=== PATIENT | female | born 1945 | race Caucasian/White ===

== ENCOUNTER 2019-03-01 05:25 | Day surgery (SDC) ==
--- NOTE | 2019-02-23 13:25 | EKG Report ---
Test Performed on : 02/23/2019 1:15:12 PM Test Reason : pat Blood Pressure : / mmHG Vent. Rate : 055 BPM Atrial Rate : 055 BPM P-R Int : 148 ms QRS Dur : 090 ms QT Int : 400 ms P-R-T Axes : 046 028 043 degrees QTc Int : 382 ms Sinus bradycardia. Possible Left atrial enlargement Borderline ECG No previous ECGs available Confirmed by Ivan HARDY, Edd ([id number]) on 02/24/2019 10:37:57 AM
[2019-02-23 13:34] LABS: BASO# 0.02 X1000 (0.0-0.2); BASO% 0.4 % (0.0-0.8); EOS# 0.14 X1000 (0.0-0.7); EOS% 2.7 % (0.0-10.0); HEMATOCRIT 42.2 % (37.0-47.0); LYMPH# 1.54 X1000 (1.2-3.4); LYMPH% 29.7 % (20.5-51.1); MCH 28.4 PG (27-31); MCHC 30.8 g/dL (33-37); MCV 92.1 FL (81-99); MONO# 0.42 X1000 (0.11-0.59); MONO% 8.1 % (1.7-9.3); MPV 9.5 FL (7.4-10.4); NEUT# 3.07 X1000 (1.4-6.5); NEUT% 59.1 % (42.2-75.2); PLT 212 X1000 (130-400); RBC 4.58 XMIL (4.2-5.4); RDW 12.2 % (11.5-14.5); WBC 5.19 X1000 (4.8-10.8)
[2019-02-23 14:55] LABS: AGAP 10; BUN 21 mg/dL (8-22); CALCIUM 10.9 mg/dL (8.8-10.2); CHLORIDE 99 mmol/L (98-107); COSMO 284; CREATININE 0.9 mg/dL (0.5-0.9); ESTIMATED GFR > 60; GLUCOSE 95 mg/dL (70-104); POTASSIUM 3.7 mmol/L (3.5-5.1); SODIUM 141 mmol/L (136-145); TCO2 32 mmol/L (25-35)
--- NOTE | 2019-02-28 21:15 | HISTORY AND PHYSICAL ---
HISTORY: The patient is a 70-year-old female referred to me by Dr. Love Kirk. The patient is having increasing problems with symptomatic pelvic organ prolapse. She is not sexually active, but is having significant vaginal irritation, and she is able to feel the bladder outside of her body. She is wishing to proceed with surgical intervention after using pessaries for the last 2 years. PAST MEDICAL HISTORY: Positive for type 2 diabetes, glaucoma, rosacea, and hypertension. PAST SURGICAL HISTORY: Positive for basal cell removal on the face. She is noted to be a para 2- 0-0-2. ALLERGIES: None. CURRENT MEDICATIONS: 1. Omeprazole 20. 2. Hydrochlorothiazide 12.5. 3. Metformin 500. 4. Latanoprost 0.005%. 5. Timolol maleate 0.5%. 7. P.r.n. medications. SOCIAL HISTORY: Negative for tobacco, ETOH, or drugs. FAMILY HISTORY: Positive for breast cancer in a paternal aunt. PHYSICAL EXAMINATION: GENERAL: BMI is 33. HEENT: Normocephalic, atraumatic. PERRLA. EOMI. No thyromegaly. CV: Regular rate and rhythm without murmur, gallop, rub. PULMONARY: Clear to auscultation and percussion. ABDOMEN: Soft. : Shows POP-Q stage IV. Leading edge is +5 and is DA. Point C is -4 with a TDL of 11. NEUROLOGIC: Afocal. ASSESSMENT AND PLAN: Patient has been managed for several years now with pessaries and is wishing to proceed with surgical intervention. The risks and benefits of a LeFort colpocleisis with midurethral sling and perineorrhaphy were explained at length. She understands and is wishing to proceed to surgical intervention. cc: MD KAM Alba
[2019-03-01] MEDS ORDERED: KEFZOL 1 GM/D5W 2 GM/100 ML IVPB ONE (05:48)
[2019-03-01] MEDS ORDERED: LR 1,000 ML ONE ×2 (05:48→08:57)
[2019-03-01] MEDS ORDERED: METROGEL-VAGINAL 0.75% GEL ONE (06:22)
[2019-03-01] MEDS ORDERED: SODIUM CHLORIDE 0.9% ONE (06:22)
[2019-03-01] MEDS ORDERED: SENSORCAINE 0.5%-EPI 1:200,000 ONE (06:22)
[2019-03-01] MEDS ORDERED: D10W 500 ML ONE (06:23)
[2019-03-01] MEDS ORDERED: ROBINUL ONE (06:28)
[2019-03-01] MEDS ORDERED: DIPRIVAN 1% ONE (06:28)
[2019-03-01] MEDS ORDERED: XYLOCAINE-MPF 2% ONE (06:28)
[2019-03-01] MEDS ORDERED: DECADRON ONE ×2 (07:00→09:17)
[2019-03-01] MEDS ORDERED: ZOFRAN ONE ×2 (07:00→09:17)
[2019-03-01] MEDS ORDERED: TORADOL ONE ×2 (07:00→09:17)
[2019-03-01] MEDS ORDERED: LASIX ONE (07:58)
[2019-03-01] MEDS: PHENERGAN ONE ×2 (08:58→09:05)
[2019-03-01] MEDS ORDERED: ZOFRAN ODT PO PRN (09:52)
[2019-03-01] MEDS ORDERED: NORCO-5 PO PRN (09:52)
[2019-03-01] MEDS: NEURONTIN PO SCH ×2 (12:48→20:52)
[2019-03-01] MEDS: PERIDEX MT SCH ×2 (12:48→20:52)
[2019-03-01] MEDS: HYDROCHLOROTHIAZIDE PO SCH (12:48)
[2019-03-01] MEDS: COLACE PO SCH ×2 (12:48→20:52)
[2019-03-01] MEDS: TORADOL IV SCH ×2 (12:48→18:19)
[2019-03-01] MEDS: LR 1,000 ML IV SCH ×2 (12:49→18:20)
[2019-03-01] MEDS: GLUCOPHAGE PO SCH (12:52)
--- NOTE | 2019-03-01 13:20 | PROGRESS NOTE ---
DATE: 03/01/2019 SUBJECTIVE: The patient is alert and oriented x3. OBJECTIVE: Afebrile. Vital signs stable. Urine output is adequate. ASSESSMENT AND PLAN: Routine postoperative care. The patient will undergo voiding trial in the morning, and we will plan on discharge in the morning. cc: Tacos Bull MD
[2019-03-01] MEDS: PATIENT'S OWN MED OPH SCH (13:50)
--- NOTE | 2019-03-01 14:31 | OPERATIVE NOTE ---
PROCEDURE DATE: 03/01/2019 PREOPERATIVE DIAGNOSIS: POP-Q stage IV prolapse. POSTOPERATIVE DIAGNOSIS: POP-Q stage IV prolapse. PROCEDURE PERFORMED: LeFort colpocleisis, dilation and curettage, perineorrhaphy, midurethral sling with Obtryx. SURGEON: Tacos Bull M.D. ANESTHESIA: General. ESTIMATED BLOOD LOSS: 50 mL. HISTORY: The patient is a 73-year-old female who has been managed with pessary for a prolonged period of time, having continued issues with her advanced-stage prolapse, who desired surgical intervention. The risks and benefits have been discussed. OPERATIVE FINDINGS: Consistent with the preop diagnosis. She has total eversion of the vagina and uterus. OPERATIVE PROCEDURE: The patient was taken to the operating room and placed in the supine position. After adequate general anesthesia was obtained, she was placed in [facility] cane stirrups, and vagina and perineum were prepped and draped in the usual fashion. At this time, single-tooth tenaculum was utilized to stabilize the anterior lip of the cervix. Hegar dilators were utilized to dilate the cervix to 4 or 5-Armenian. A Telfa pad was placed in the posterior fourchette, and then sharp curettage was performed on the endometrial cavity throughout. The uterus was noted to be small. Scant tissue was obtained and sent to Pathology for frozen section, which returned later as a small polyp and no abnormalities in terms of malignancy. After this had been finished, we then began with demarcating our area of dissection for the anterior and posterior dissection, starting anteriorly. We performed a hydrodissection in this area with 0.25% Marcaine with epinephrine mixed 50% with normal saline. We dissected out the anterior portion by making initial incisions with scalpel along the vaginal mucosa to delineate the extent of our large rectangular dissection. Upon doing this, starting at the cervix, we went all the way up to the urethrovesical neck, and then laterally, leaving approximately a 2 cm strip of vaginal tissue for tunnel creation. We turned our attention towards the posterior compartment, and in a similar fashion did the hydrodissection with the same local anesthetic. We skeletonized our dissection extent by using a scalpel on the vaginal mucosa, again leaving approximately the 2 cm vaginal strip laterally. We then dissected out the large posterior rectangle incision, extending from close to the perineal body to the cervical stroma. We dissected this out using sharp dissection with traction and countertraction, removing all the vaginal mucosa. We then began imbricating by tying front to back initially with 0 Vicryl ligature through the cervical stroma. We then continued staying mostly within the midline portion of our dissection using 2.0 Vicryl ligature, closing anterior to posterior. After we had done approximately half of this, we then began closing the vaginal mucosa from one side to the other with interrupted 2.0 Vicryl ligatures. This allowed for continued regression of the prolapse, and yet still maintaining visualization of the vaginal tissue that was being retracted back in. We then continued with our midline closure, using interrupted sutures of 2.0 Vicryl ligature to the perineal body and the urethrovesical neck. We then went back to the 0 Vicryl ligature, and closed the vaginal mucosa, again with the running locking fashion, closing anterior to posterior, leaving us a small tunnel for blood drainage from the cervix if need be. After doing this, we then essentially had 90% closure of the large defect. We closed anterior to posterior, the vaginal mucosa, extending from the urethrovesical neck, down to just inside the hymenal ring. After doing this, we proceeded on with perineorrhaphy. We grasped the vaginal introitus, approximately 4 o'clock and 8 o'clock position, again did a hydrodissection with the same local anesthetic. We then made a vickie-shaped incision. Using a 0 Vicryl ligature with a [id number] fashion, we performed plication of the distal levators across this area, closing the perineal body through this area as well and building this area up, and we did this with several interrupted sutures. This left us with the remaining second-degree episiotomy, which we closed in the typical fashion with 2.0 Vicryl ligature. We then turned our attention towards placement of the sling. The urethra was grasped proximally and distally with Allis clamps, and injected another 8 to 10 mL of the same local anesthetic. A sagittal incision was made, and Metzenbaum scissors were utilized to dissect up towards the ischial pubic ramus on each side at approximately 10 o'clock and 2 o'clock position. We were able to get our finger in and feel the obturator membrane on both sides. Based on the bony landmark of the ischial pubic ramus as well as the insertion of the adductor longus, a stab incision was initially made on the left-hand side. Halo device was introduced through this incision, through the obturator canal, to the sound truck operator's finger, which directed the needle out. The mesh was attached to it. It was retracted back through the skin. This was performed on the contralateral side in a similar fashion. After completion of this, Ryan catheter was removed, cystoscope was placed. Urine output was noted to be clear, but concentrated. Then, 20 mg of Lasix was given. In doing this, we then had better visualization of the ureteral orifices, and both were effluxing urine. There was no evidence of any abnormalities, any sutures, any blood, or any mesh within the bladder. Cystoscope was removed. A Italia clamp was placed in the midurethral position. The tape was brought up with Italia clamp. Blue tag was excised and sheaths easily removed. There was no tension on the mesh whatsoever. The midurethral incision was closed with running locking 2.0 Vicryl ligature. The mesh was trimmed at the skin. Ryan catheter was placed. Sponge count, instrument count, and needle counts were correct x3. Packs and drains were Ryan. The patient was awakened and taken to the recovery room with vital signs stable. cc: Tacos Bull MD MTDD
[2019-03-01 15:10] LABS: URINE SOURCE CATH
[2019-03-01 15:20] LABS: BILIRUBIN URINE NEGATIVE (NEGATIVE); BLOOD URINE NEGATIVE (NEGATIVE); COLOR STRAW; GLUCOSE URINE NEGATIVE (NEGATIVE); KETONE URINE NEGATIVE (NEGATIVE); LEUKOCYTES URINE NEGATIVE (NEGATIVE); NITRITE URINE NEGATIVE (NEGATIVE); PH URINE 6.5; PROTEIN URINE NEGATIVE (NEGATIVE); SP GRAVITY URINE 1.006; TURBIDITY URINE CLEAR (CLEAR); UROBILINOGEN URINE NORMAL (NORMAL)
[2019-03-01 15:22] LABS: UR EPITHELIAL CELLS <10 /HPF (<10); URINE BACTERIA NEGATIVE /HPF; URINE RBC <10 /HPF (<10); URINE WBC <10 /HPF (<10)
[2019-03-01] MEDS ORDERED: ZOCOR PO SCH (21:00)
[2019-03-02] MEDS: TORADOL IV SCH ×2 (01:48→06:25)
[2019-03-02] MEDS: LR 1,000 ML IV SCH (02:29)
[2019-03-02] MEDS: NEURONTIN PO SCH (09:29)
[2019-03-02] MEDS: PERIDEX MT SCH (09:29)
[2019-03-02] MEDS: PATIENT'S OWN MED OPH SCH (09:29)
[2019-03-02] MEDS: COLACE PO SCH (09:29)
[2019-03-02] MEDS: HYDROCHLOROTHIAZIDE PO SCH (09:29)
[2019-03-02] MEDS: GLUCOPHAGE PO SCH (09:29)
[2019-03-02 11:54] VITALS: BP 114/42
--- NOTE | 2019-03-03 06:16 | DISCHARGE SUMMARY ---
ADMISSION DATE: 03/01/2019 DISCHARGE DATE: 03/02/2019 PRINCIPAL DIAGNOSIS: Pelvic organ prolapse, procidentia. PROCEDURE: LeFort colpocleisis, perineorrhaphy, and midurethral sling with Obtryx. HISTORY: The patient is a 73-year-old female who had been managed with pessary use over the last year or 2 who is wishing to proceed to surgical intervention. HOSPITAL COURSE: The patient underwent the above-stated procedure. Blood loss at that time was approximately 40 mL. Her postoperative course has been uncomplicated. However, she did have some issues with her peripheral neuropathy while in the hospital. She is being discharged home after completion of her voiding trial. Discharge medications are [place] and Colace. She is instructed on regular diet, and decreased activity. She is to return to see us in the office in 3 weeks. cc: Tacos Bull MD
== END 2019-03-02 13:03 | disposition home or self-care (01) ==
LOC: 4N 05:25 → OPS 05:25
PROVIDERS: ATTEND Obstetrics & Gynecology
PROC: GY.CYST (2019-03-01 06:59)